=== PATIENT | male | born 1980 | race African-American/Black ===

== ENCOUNTER 2016-06-28 10:01 | Emergency (ER) | payer MEDICAID, OTHER ==
[2016-06-28 11:47] VITALS: BP 140/95
--- NOTE | 2016-06-28 12:52 | ED ---
Skin Complaint - HPI Summary HPI Summary: Patient arrives to ED with CC of right pinky finger swelling, pain and warmth with small scab. He states the pain and swelling have been consistently getting worse and he is thinking it may be infected. He is unable to fully flex and extend the finger d/t swelling. Denies fever. He states the swelling began as a scab that he had picked at and feels it may have become infected. He is otherwise healthy and takes no medications. - History of Current Complaint Chief Complaint: EDExtremityUpper Time Seen by Provider: 06/28/16 10:11 Stated Complaint: RIGHT HAND INJURY Hx Obtained From: Patient Onset/Duration: Started Days Ago Skin Exposure Onset/Duration: Days Ago Timing: Constant Onset Severity: Moderate Current Severity: Moderate Pain Intensity: 5 Pain Scale Used: 0-10 Numeric Skin Location: Hand Aggravating Symptom(s): Nothing Alleviating Symptom(s): Nothing Associated Signs & Symptoms: Drainage, Tenderness, Joint Swelling - Allergy/Home Medications Allergies/Adverse Reactions: Allergies Allergy/AdvReac Type Severity Reaction Status Date / Time No Known Allergies Allergy Verified 06/28/16 10:03 PMH/Surg Hx/FS Hx/Imm Hx Previously Healthy: Yes Infectious Disease History: No Infectious Disease History: Denies: Traveled Outside the [place] in Last 30 Days - Social History Occupation: Employed Full-time Lives: With Family Alcohol Use: Rare Hx Substance Use: No Substance Use Type: Reports: None Hx Tobacco Use: No Smoking Status (MU): Never Smoked Tobacco Review of Systems Constitutional: Negative Cardiovascular: Negative Respiratory: Negative Musculoskeletal: Negative Positive: Other - small 1cm fluctuant mass on palmar side of 5th right finger between MCP and PIP Neurological: Negative Psychological: Normal All Other Systems Reviewed And Are Negative: Yes Physical Exam Triage Information Reviewed: Yes Vital Signs On Initial Exam: Initial Vitals Temp Pulse Resp BP Pulse Ox 97.5 F 81 16 142/92 99 06/28/16 10:03 06/28/16 10:03 06/28/16 10:03 06/28/16 10:03 06/28/16 10:03 Vital Signs Reviewed: Yes Appearance: Positive: Well-Appearing, Well-Nourished Skin: Positive: Warm, Skin Color Reflects Adequate Perfusion, Other - small 1cm fluctuant mass on palmar side of 5th right finger between MCP and PIP Head/Face: Positive: Normal Head/Face Inspection Eyes: Positive: EOMI, APRIL Neck: Positive: Supple, No Lymphadenopathy Respiratory/Lung Sounds: Positive: Clear to Auscultation, Breath Sounds Present Abdomen Description: Positive: Nontender, No Organomegaly Musculoskeletal: Positive: Normal Neurological: Positive: Normal Psychiatric: Positive: Normal AVPU Assessment: Alert Procedures - Incision and Drainage Anesthesia: Digital - digital block Instrument(s): Scalpel Packing: Other - no packing needed Diagnostics - Vital Signs Vital Signs Temp Pulse Resp BP Pulse Ox 06/28/16 11:46 97.4 F 69 16 140/95 06/28/16 10:03 97.5 F 81 16 142/92 99 - Laboratory Lab Statement: Any lab studies that have been ordered have been reviewed, and results considered in the medical decision making process. Course/Dx - Course Course Of Treatment: Patient was draped in sterile fashion. Bedadyne prep used to clean. digital block of right 5th finger. 15" blade used. moderate amount of drainage from area. Small .25cm slit used for incision and drainage. Patient tolerated well. Band-aid applied with gauze surrounding. Antibiotic Keflex given for surrounding cellulitis. 4 percoset's given for pain d/t location of abscess. Will await cultures if abx needs to be changed. - Differential Diagnoses - Skin Complaint Differential Diagnoses: Abscess, Cellulitis, Contact Dermatitis - Diagnoses Provider Diagnoses: abcsess, Cellulitis Discharge - Discharge Plan Condition: Stable Disposition: HOME Prescriptions: Cephalexin CAP* [Keflex CAP*] 500 mg PO QID #28 cap MDD 4 oxyCODONE/Acetamin 10/325(NF) [Percocet 10/325 (NF)] 1 tab PO BID #4 tab MDD 2 Patient Education Materials: Abscess (ED), Incision and Drainage (ED) Forms: *Work Release Referrals: Rashawn Gilmore MD [Primary Care Provider] - Additional Instructions: Take 1 cap 4 times daily for 7 days for cellulitis associated with abscess. Ibuprofen 600mg three times daily as needed for pain Percoset twice daily for 2 days as needed for pain If you develop signs of infection such as fever, drainage from the area, redness or warmth, please come back to ED. Images - Images Hands: 1 - small 1cm fluctuant mass with erythema and warmth surrounding
== END 2016-06-28 11:46 | disposition home or self-care (01) ==
LOC: ED 10:01
DX: L02.511 Cutaneous abscess of right hand (principal); L03.011 Cellulitis of right finger
CPT/HCPCS: 87070; 87205; 87640; 87641; 99282

== ENCOUNTER 2016-08-08 23:13 | Emergency (ER) | payer OTHER ==
[2016-08-09] MEDS ORDERED: Ibuprofen TAB* 600 MG PO ONE (01:43)
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
[2016-08-09 04:54] VITALS: BP 128/91
--- NOTE | 2016-08-09 08:03 | RAD ---
Indication: Dizziness, neck injury. CT of the cervical spine was obtained in the axial plane. Sagittal and coronal reconstructed images were obtained. The skull base demonstrates no evidence of fracture. Mastoid air cells are well aerated. The C1 ring is intact. The vertebral bodies appear normal in height. No compression fracture is noted. Mild disc space narrowing is noted at C4-C5, C5-C6 and C6-C7 with ventral osteophyte formation. IMPRESSION: No fracture of the cervical spine is noted. Mild degenerative disc disease at C4-C5, C5-C6 and C6-C7.
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
== END 2016-08-09 04:53 | disposition home or self-care (01) ==
LOC: ED 23:13
DX: S16.1XXA Strain of muscle, fascia and tendon at neck level, initial encounter (principal); V49.40XA Driver injured in collision with unspecified motor vehicles in traffic accident, initial encounter; Y92.410 Unspecified street and highway as the place of occurrence of the external cause; G40.909 Epilepsy, unspecified, not intractable, without status epilepticus
CPT/HCPCS: 70450; 72125; 99283; A9270-GY

== ENCOUNTER 2016-08-16 23:57 | Emergency (ER) | payer OTHER ==
--- NOTE | 2016-08-17 01:18 | ED ---
Yumiko Barber Matthew, scribed for Yoan oGnzalez MD on 08/17/16 at 0041 . Lower Extremity - HPI Summary HPI Summary: A 36 y/o male presents to the ED with right ankle pain since minutes ago. The pain is rated 5/10 in severity. The patient states that he fell in the bathroom and twisted his ankle. He has no other c/o at this time. - History of Current Complaint Chief Complaint: EDExtremityLower Stated Complaint: FALL, LEG PAIN Time Seen by Provider: 08/17/16 00:14 Hx Obtained From: Patient Mechanism Of Injury: Fall From A Standing Position Onset of Pain: Immediate Onset/Duration: Still Present Severity Initially: Moderate Severity Currently: Moderate Pain Intensity: 5 Pain Scale Used: 0-10 Numeric Timing: Constant Location: Is Discrete @ - right ankle Associated Signs And Symptoms: Positive: Negative Aggravating Factor(s): Movement - Allergies/Home Medications Allergies/Adverse Reactions: Allergies Allergy/AdvReac Type Severity Reaction Status Date / Time No Known Allergies Allergy Verified 08/17/16 00:21 PMH/Surg Hx/FS Hx/Imm Hx Endocrine/Hematology History: Denies: Hx Diabetes Neurological History: Reports: Hx Seizures Infectious Disease History: Denies: Traveled Outside the [place] in Last 30 Days - Family History Known Family History: Negative: Diabetes - Social History Alcohol Use: Rare Hx Substance Use: No Substance Use Type: Reports: None Hx Tobacco Use: No Smoking Status (MU): Never Smoked Tobacco Review of Systems Constitutional: Negative Eyes: Negative ENT: Negative Cardiovascular: Negative Respiratory: Negative Gastrointestinal: Negative Genitourinary: Negative Positive: Arthralgia - Right ankle pain Skin: Negative Neurological: Negative Psychological: Normal All Other Systems Reviewed And Are Negative: Yes Physical Exam Triage Information Reviewed: Yes Vital Signs On Initial Exam: Initial Vitals Temp Pulse Resp BP Pulse Ox 98 F 72 16 142/94 100 08/17/16 00:30 08/17/16 00:30 08/17/16 00:30 08/17/16 00:30 08/17/16 00:30 Vital Signs Reviewed: Yes Appearance: Positive: Well-Appearing, No Pain Distress Skin: Positive: Warm Head/Face: Positive: Normal Head/Face Inspection Eyes: Positive: APRIL ENT: Positive: Hearing grossly normal Neck: Positive: Supple Respiratory/Lung Sounds: Positive: Clear to Auscultation, Breath Sounds Present Cardiovascular: Positive: RRR Abdomen Description: Positive: Nontender, Soft Musculoskeletal: Positive: Other - rt foot mild tenderness layt aspect of foot, no dseformity Neurological: Positive: Alert, Oriented to Person Place, Time Diagnostics - Vital Signs Vital Signs Temp Pulse Resp BP Pulse Ox 08/17/16 00:30 98 F 72 16 142/94 100 - Laboratory Lab Statement: Any lab studies that have been ordered have been reviewed, and results considered in the medical decision making process. - Radiology Foot XR Xray Interpretation: No Acute Changes Radiology Interpretation Completed By: ED Physician Ankle XR Xray Interpretation: No Acute Changes Radiology Interpretation Completed By: ED Physician Lower Extremity Course/Dx - Course Assessment/Plan: A 36 y/o male presents to the ED with right ankle pain since minutes ago. The pain is rated 5/10 in severity. The patient states that he fell in the bathroom and twisted his ankle. He has no other c/o at this time. The XRs were negative for a fracture. The patient will be discharged home with ibuprofen and follow-up with his PCP. - Diagnoses Provider Diagnoses: Contusion of foot, right Discharge - Discharge Plan Condition: Stable Disposition: HOME Prescriptions: Ibuprofen TAB* [Motrin TAB* 600 MG] 600 mg PO Q6H #30 tab Patient Education Materials: Ibuprofen (By mouth), Foot Contusion (ED) Referrals: Rashawn Gilmore MD [Primary Care Provider] - 3 Days Additional Instructions: Please follow-up with your primary care physician in 3 days. The documentation as recorded by the Yumiko schwartz Matthew accurately reflects the service I personally performed and the decisions made by , Yoan Gonzalez MD.
[2016-08-17] MEDS ORDERED: Ibuprofen TAB* 600 MG PO ONE (01:23)
[2016-08-17] MEDS ORDERED: Ibuprofen TAB* 600 MG ONE (01:25)
[2016-08-17 01:37] VITALS: BP 133/88
--- NOTE | 2016-08-17 07:36 | RAD ---
INDICATION: Right ankle injury. TECHNIQUE: 2 views of the right ankle were obtained. FINDINGS: There is soft tissue swelling present along the anterior aspect of the ankle. The bones are normal alignment. No acute fracture is seen. Joint spaces appear maintained. IMPRESSION: SOFT TISSUE SWELLING, NO FRACTURE IS SEEN.
--- NOTE | 2016-08-17 07:41 | RAD ---
INDICATION: Right foot injury. TECHNIQUE: 3 views of the right foot were obtained. FINDINGS: There is soft tissue swelling present along the dorsal aspect of the foot. The bones are normal alignment. There is a small 4 mm calcific density present adjacent to the dorsal navicular bone consistent with a small avulsion fracture fragment age indeterminate. No other fractures are seen. Joint spaces appear maintained. IMPRESSION: SMALL AVULSION FRACTURE FRAGMENT ARISING FROM THE DORSAL NAVICULAR BONE, AGE INDETERMINATE.
== END 2016-08-17 01:37 | disposition home or self-care (01) ==
LOC: ED 23:57
DX: S90.31XA Contusion of right foot, initial encounter (principal); S92.251A Displaced fracture of navicular [scaphoid] of right foot, initial encounter for closed fracture; W19.XXXA Unspecified fall, initial encounter; Y92.002 Bathroom of unspecified non-institutional (private) residence as the place of occurrence of the external cause
CPT/HCPCS: 99282; A9270-GY

== ENCOUNTER 2018-10-14 14:20 | Emergency (ER) | payer SELFPAY ==
--- NOTE | 2018-10-14 16:05 | ED ---
Upper Extremity Pain - HPI Summary HPI Summary: Lt ring finger, palmar surface with red swelling x5 days. Better since soaking in hot water - no drainage. Had blisters over the IP joints on this hand from working with wet mop handles (pseudomonas infection?). Denies streaking, numbness, tingling, weakness. Some pain w/ end flexion - TTP. No pain w/ passive ROM. Has not taken any medication for pain/swelling and denies use of anbx. nO h/o MRSA/MSSA - History of Current Complaint Chief Complaint: EDRashSkinAbscess Stated Complaint: BLISTER ON FINGER Time Seen by Provider: 10/14/18 14:45 Hx Obtained From: Patient - Allergies/Home Medications Allergies/Adverse Reactions: Allergies Allergy/AdvReac Type Severity Reaction Status Date / Time No Known Allergies Allergy Verified 10/14/18 14:31 PMH/Surg Hx/FS Hx/Imm Hx Previously Healthy: Yes Endocrine/Hematology History: Denies: Hx Diabetes, Autoimmune Disease Musculoskeletal History: Denies: Hx Arthritis, Hx Rheumatoid Arthritis, Hx Bursitis, Hx Gout, Hx Orthopedic Injury, Hx Scoliosis, Hx Tendonitis, Hx of Fracture(s) Neurological History: Reports: Hx Seizures Denies: Hx Headaches, Other Neuro Impairments/Disorders Infectious Disease History: No Infectious Disease History: Denies: Hx of Known/Suspected MRSA, Traveled Outside the [place] in Last 30 Days - Family History Known Family History: Negative: Diabetes - Social History 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 @ [employer] Lives: With Family - children Alcohol Use: Rare Hx Substance Use: No Substance Use Type: Reports: None Hx Tobacco Use: No Smoking Status (MU): Never Smoked Tobacco Review of Systems Constitutional: Negative Negative: Fever, Chills, Fatigue Cardiovascular: Negative Respiratory: Negative Gastrointestinal: Negative Negative: Vomiting, Nausea Positive: no symptoms reported Positive: Edema Skin: Other - redness of finger Neurological: Negative Psychological: Normal All Other Systems Reviewed And Are Negative: Yes Physical Exam Triage Information Reviewed: Yes Vital Signs On Initial Exam: Initial Vitals Temp Pulse Resp BP Pulse Ox 98.0 F 82 14 127/90 97 10/14/18 14:28 10/14/18 14:28 10/14/18 14:28 10/14/18 14:28 10/14/18 14:28 Vital Signs Reviewed: Yes Appearance: Positive: Well-Appearing, No Pain Distress, Well-Nourished Skin: Positive: Warm, Skin Color Reflects Adequate Perfusion, Dry - diffuse callouses over IP joints of palmar surface of B/L hands; well circumscribed area of erythematous induration involving flesh of palmar surface of Lt ring finger (proximal) - no signs of acute trauma (scabbing) and no streaking, drainage, pusutles - mild TTP Head/Face: Positive: Normal Head/Face Inspection ENT: Positive: Hearing grossly normal Respiratory/Lung Sounds: Positive: Breath Sounds Present Cardiovascular: Positive: Pulses are Symmetrical in both Upper and Lower Extremities Musculoskeletal: Positive: Strength/ROM Intact, Other - no pain w/ passive ROM of tendons involving the area Neurological: Positive: Normal, Sensory/Motor Intact, Alert, Oriented to Person Place, Time Psychiatric: Positive: Normal Diagnostics - Vital Signs Vital Signs Temp Pulse Resp BP Pulse Ox 10/14/18 14:28 98.0 F 82 14 127/90 97 - Laboratory Lab Statement: Any lab studies that have been ordered have been reviewed, and results considered in the medical decision making process. Course/Dx - Course Course Of Treatment: possible pseudomonas infection of tissue from friction injury involving wet wooden mop handle - will trial anbx and advise close f/u - pt aware of danger s/sx of when to return to ED - otherwise will f/u w/ hand specialist. - Diagnoses Provider Diagnoses: Superficial injury of left ring finger with infection Discharge - Sign-Out/Discharge Documenting (check all that apply): Patient Departure Patient Received Moderate/Deep Sedation with Procedure: No - Discharge Plan Condition: Stable Disposition: HOME Prescriptions: Ciprofloxacin TAB* [Cipro 500 MG TAB*] 500 mg PO BID #20 tab Patient Education Materials: Abscess (ED) Forms: *Work Release Referrals: Paul Kruger MD [Medical Doctor] - Additional Instructions: Rest - avoid friction/pressure to area Move with gentle stretches to prevent stiffness Soak in warm epsom salt water 2-3 x day - if any area of the finger opens and drains, continue to soak and express contents with gentle pressure then wash and cover to catch any remaining drainage For pain and swelling, take ibuprofen 600mg every 6 hours with food Complete antibiotics as directed If same or worse next week, call hand specialist for evaluation (contact information provided here) *if you develop streaking, stiffness, numbness, tingling, weakness, fever, chills, return to the ED - Billing Disposition and Condition Condition: STABLE Disposition: Home
[2018-10-14 16:35] VITALS: BP 128/88
== END 2018-10-14 16:34 | disposition home or self-care (01) ==
LOC: ED 14:20
DX: S60.945A Unspecified superficial injury of left ring finger, initial encounter (principal); X50.3XXA Overexertion from repetitive movements, initial encounter; Y99.0 Civilian activity done for income or pay
CPT/HCPCS: 99282

== ENCOUNTER 2018-10-27 15:23 | Emergency (ER) | payer OTHER ==
--- NOTE | 2018-10-27 18:17 | ED ---
Skin Complaint - HPI Summary HPI Summary: This pt is a 38 y/o male presenting to [facility] c/o swelling and redness on right fourth digit. Pt is right handed. Pt reports he was working with wet mop handles and got a blister on right fourth digit on 10/07/18. Pt was seen in the ED on 10/14/18 where he was given ibuprofen and was told to soak his finger in Epsom salt. He notes after these treatments his swelling began to decrease. He notes he was out of work for 7 days and on the 8th day post incident he went back to work and his finger began swelling up again. Now he notes he has redness , swelling, and pain on right fourth finger. Denies any drainage from finger. pain with flexion. No fever chills. not immunocompromised. tdap utd Denies any PMHx. He does not take any medications on a daily basis. NKDA. Pt's medications reviewed this visit. - History of Current Complaint Chief Complaint: EDExtremityUpper Time Seen by Provider: 10/27/18 17:17 Stated Complaint: INFECTION ON HIS HAND PER PATIENT Hx Obtained From: Patient Onset/Duration: Started Days Ago, Still Present Skin Exposure Onset/Duration: Days Ago Timing: Lasting Days Current Severity: Severe Pain Intensity: 10 Pain Scale Used: 0-10 Numeric Skin Location: Other: - Right fourth digit Character: Swelling, Pain, Redness Aggravating Symptom(s): Nothing Alleviating Symptom(s): Nothing Associated Signs & Symptoms: Negative Related History: Other: - s/p right fourth digit blister on 10/07/18. - Allergy/Home Medications Allergies/Adverse Reactions: Allergies Allergy/AdvReac Type Severity Reaction Status Date / Time No Known Allergies Allergy Verified 10/27/18 15:31 Home Medications: Home Medications Acetaminophen TAB* [Tylenol TAB*] 650 mg PO Q6H PRN 10/27/18 [History Confirmed 10/27/18] Ibuprofen TAB* [Advil TAB*] 600 mg PO Q6H PRN 10/27/18 [History Confirmed ] PMH/Surg Hx/FS Hx/Imm Hx Previously Healthy: Yes Endocrine/Hematology History: Denies: Hx Diabetes Musculoskeletal History: Denies: Hx Arthritis, Hx Rheumatoid Arthritis, Hx Bursitis, Hx Gout, Hx Orthopedic Injury, Hx Scoliosis, Hx Tendonitis Neurological History: Reports: Hx Seizures Denies: Hx Headaches, Other Neuro Impairments/Disorders Infectious Disease History: No Infectious Disease History: Denies: Hx of Known/Suspected MRSA, Traveled Outside the [place] in Last 30 Days - Family History Known Family History: Positive: Non-Contributory Negative: Diabetes - Social History Occupation: Employed Full-time Lives: With Family Alcohol Use: Rare Hx Substance Use: No Substance Use Type: Reports: None Hx Tobacco Use: No Smoking Status (MU): Light Every Day Tobacco Smoker Review of Systems Negative: Fever Musculoskeletal: Other - POSITIVE: right 4th finger pain Positive: Edema - right 4th finger All Other Systems Reviewed And Are Negative: Yes Physical Exam - Summary Physical Exam Summary: Vital Signs Reviewed: Yes A+Ox3, no distress Eyes: Conjunctiva Clear, ENT: Hearing grossly normal Neck: Positive: Supple Respiratory: Positive: No respiratory distress, No accessory muscle use Cardiovascular: CBT <2 sec 2= radial Musculoskeletal Exam: Pt with edema palmar aspect right ring finger + erythema, warmth edema primarily at DIP joint -extends to MCP {t wit limited extension of IP joint improved extion of MCP with discomfort extending to central palm mild warmth. no drainage + TTP hold in slight flexion Neurological: Positive: Alert, + sensation throughout tip of finger Psychological: Positive: Normal Response To examiner Skin: Positive: no rash, no ecchymosis Triage Information Reviewed: Yes Vital Signs On Initial Exam: Initial Vitals Temp Pulse Resp BP Pulse Ox 99.2 F 91 18 128/89 97 10/27/18 15:29 10/27/18 15:29 10/27/18 15:29 10/27/18 15:29 10/27/18 15:29 Diagnostics - Vital Signs Vital Signs Temp Pulse Resp BP Pulse Ox 10/27/18 17:30 76 119/73 97 10/27/18 17:28 98.6 F 77 18 119/73 97 10/27/18 15:29 99.2 F 91 18 128/89 97 - Laboratory Result Diagrams: 10/27/18 18:51 10/27/18 18:51 Lab Statement: Any lab studies that have been ordered have been reviewed, and results considered in the medical decision making process. Re-Evaluation - Re-Evaluation First Eval Re-Evaluation Time: 18:25 Comment: Dr. Maher, orthopedist, was paged. Nurse calls back and reports he is still in surgery. Will call back as soon as he is done. Course/Dx - Course Course Of Treatment: Pt with progresive pain, swelling and erythema of palmar aspect of right ring finger IP joint area -edema and erythema extending to MCP pain with full extensio IP jpint. no fevers, not immuocompromised. VSS. concern for early tenosynovitis. will check labs, imaging, rocephin. request ortho input. pt in agreement with plan. will sign out pt to Kota mandel pending ortho consult - Diagnoses Provider Diagnoses: Finger infection Discharge - Sign-Out/Discharge Documenting (check all that apply): Sign-Out Patient Signing out patient TO: Aaron Mandel - pending labs, XR, and consult Patient Received Moderate/Deep Sedation with Procedure: No - Discharge Plan Condition: Stable Disposition: HOME Prescriptions: Cephalexin CAP* [Keflex CAP*] 500 mg PO QID #40 cap Patient Education Materials: Wound Infection (DC) Forms: *Work Release Referrals: Rashawn Gilmore MD [Primary Care Provider] - Herve Maher MD [Medical Doctor] - 2 Days Additional Instructions: If you develop a fever, worsening pain, shortness of breath, chest pain, new or worsening symptoms - please call your PCP or go to the ED immediately. Please start the antibiotic as directed Please call Orthopedics on Tuesday morning and someone in their office will see you that day for a recheck of your finger - Billing Disposition and Condition Condition: STABLE Disposition: Home - Attestation Statements Document Initiated by Niya: Yes Documenting Scribe: Keri Multani Provider For Whom Niya is Documenting (Include Credential): Kristen Mccormack MD Scribe Attestation: Keri Barber, scribed for Kristen Mccormack MD on 10/28/18 at 0540. Scribe Documentation Reviewed: Yes Provider Attestation: The documentation as recorded by the Keri schwartz accurately reflects the service I personally performed and the decisions made by , Kristen Mccormack MD Status of Scribe Document: Viewed
[2018-10-27] MEDS ORDERED: NS 0.9% 1000 ML** 1,000 ML IV ONE (18:21)
[2018-10-27] MEDS ORDERED: cefTRIAXone(*) 1 GM in NS 0.9% 50 ML* 50 ML IVPB ONE (18:23)
--- NOTE | 2018-10-27 18:43 | ED ---
Progress - Progress Note Progress Note: This pt is a 38 y/o male [facility] c/o swelling and redness on right fourth digit. Pt is right handed. Pt reports he was working with wet mop handles and got a blister on right fourth digit on 10/07/18. Pt was seen in the ED on 10/14/18 where he was given ibuprofen and was told to soak his finger in Epsom salt. He notes after these treatments his swelling began to decrease. He notes he was out of work for 7 days and on the 8th day post incident he went back to work and his finger began swelling up again. Now he notes he has redness , swelling, and pain on right fourth finger. Denies any drainage from finger. Denies any PMHx. He does not take any medications on a daily basis. NKDA. GENERAL: NAD. WDWN. No pain distress. SKIN: RIGHT 4th digit: Proximal phalanx with moderate edema and TTP. Mild TTP along flexor aspect of 4th MC. CHEST: No accessory muscle use. Breathing comfortably and in no distress. CV: Pulses intact radial and ulnar. Cap refill <2seconds MSK: RIGHT 4th digit: Unable to flex due to pain and swelling at proximal phalanx. TTP. RIGHT WRIST: FROM without pain NEURO: Alert. Sensations intact hand and all fingers. PSYCH: Age appropriate behavior. - Results/Orders Results/Orders: Laboratory Tests 10/27/18 10/27/18 18:51 18:51 WBC 9.1 RBC 4.37 Hgb 13.3 L Hct 40 L MCV 91 MCH 31 MCHC 34 RDW 14 Plt Count 232 MPV 7.9 Neut % (Auto) 59.4 Lymph % (Auto) 31.0 Story % (Auto) 6.8 Eos % (Auto) 2.2 Baso % (Auto) 0.6 Absolute Neuts (auto) 5.4 Absolute Lymphs (auto) 2.8 Absolute Monos (auto) 0.6 Absolute Eos (auto) 0.2 Absolute Basos (auto) 0.1 Absolute Nucleated RBC 0.0 Nucleated RBC % 0.0 Sodium 137 Potassium 4.5 Chloride 107 Carbon Dioxide 25 Anion Gap 5 BUN 14 Creatinine 1.06 Est GFR ( Amer) 94.1 Est GFR (Non-Af Amer) 77.8 BUN/Creatinine Ratio 13.2 Glucose 146 H Calcium 9.2 C-Reactive Protein 3.63 Re-Evaluation - Re-Evaluation First Eval Re-Evaluation Time: 18:25 Comment: Dr. Maher, orthopedist, was paged. Nurse calls back and reports he is still in surgery. Will call back as soon as he is done. Course/Dx - Course Course Of Treatment: Given his symptoms and exam there is a suspicion for flexor tenosynovitis. Ortho was consulted. Cheryl examined pt and spoke with Dr. Maher. recommends stopping anbx and starting keflex QID as he is afebrile and labwork is WNL. F/u Tuesday in the office. Return to ED if worse. Discussed this with pt and he is agreeable with the plan. He agrees to follow up Tuesday. Strict return precautions given - if he develops a fever, worsening pain/swelling, or spreading redness, drainage - return to ED immediately. - Diagnoses Provider Diagnoses: Finger infection - Provider Notifications Discussed Care Of Patient With: Cheryl Luna examined pt and spoke with Dr. Maher. recommends stopping anbx and starting keflex QID. F/u Tuesday. Return to ED if worse Time Discussed With Above Provider: 20:15 Discharge - Sign-Out/Discharge Documenting (check all that apply): Patient Departure, Receiving Sign-Out Receiving patient FROM: Kristen Mccormack Patient Received Moderate/Deep Sedation with Procedure: No - Discharge Plan Condition: Stable Disposition: HOME Prescriptions: Cephalexin CAP* [Keflex CAP*] 500 mg PO QID #40 cap Patient Education Materials: Wound Infection (DC) Forms: *Work Release Referrals: Rashawn Gilmore MD [Primary Care Provider] - Herve Maher MD [Medical Doctor] - 2 Days Additional Instructions: If you develop a fever, worsening pain, shortness of breath, chest pain, new or worsening symptoms - please call your PCP or go to the ED immediately. Please start the antibiotic as directed Please call Orthopedics on Tuesday morning and someone in their office will see you that day for a recheck of your finger - Billing Disposition and Condition Condition: STABLE Disposition: Home
[2018-10-27 19:01] LABS: ABS Basophils 0.1 10^3/ul (0-0.2); ABS Eosinophils 0.2 10^3/ul (0-0.6); ABS Lymphocytes 2.8 10^3/ul (1.0-4.8); ABS Monocytes 0.6 10^3/ul (0-0.8); ABS Neutrophils 5.4 10^3/ul (1.5-7.7); Eosinophil % 2.2 %; Hematocrit 40 % (42-52); Hemoglobin 13.3 g/dL (14.0-18.0); Mean Corpuscular HGB Conc 34 g/dL (31-36); Mean Corpuscular Hemoglobin 31 pg (27-31); Mean Corpuscular Volume 91 fL (80-94); Mean Platelet Volume 7.9 fL (7.4-10.4); Platelet Count 232 10^3/uL (150-450); Red Blood Count 4.37 10^6 /uL (4.18-5.48); Red Cell Distribution Width 14 % (10-15); White Blood Count 9.1 10^3/uL (3.5-10.8)
[2018-10-27 19:17] LABS: BUN/Creatinine Ratio 13.2 (8-20); C Reactive Protein 3.63 mg/L (<8.01); Calcium 9.2 mg/dL (8.6-10.3); EGFR African American 94.1 (>60); EGFR Non-African American 77.8 (>60)
[2018-10-27 19:21] LABS: Potassium 4.5 mmol/L (3.5-5.0)
[2018-10-27 21:55] VITALS: BP 150/99
== END 2018-10-27 21:25 | disposition home or self-care (01) ==
LOC: ED 15:23
DX: L08.9 Local infection of the skin and subcutaneous tissue, unspecified (principal); F17.210 Nicotine dependence, cigarettes, uncomplicated
CPT/HCPCS: 36415; 73140; 80048; 85025; 86140; 96361; 96365; 99283; J0696

== ENCOUNTER → 2018-10-30 13:08 | Emergency (ER) | payer OTHER ==
[~2018-10-30 13:08] MED LIST: Gadoteridol* (CONTRAST) 279.3 MG/ML 10 ML IV ONE
[2018-10-30 13:19] VITALS: BP 145/104
--- OUTSIDE RECORDS SUMMARY | 2018-10-30 13:21 | XMS REPORT | Continuity of Care Document ---
:1980 External Reference #:[id number] Author Name Jordana Meeks Care Team Providers Name Role Phone Rashawn Gilmore MD Primary Care Physician Unavailable Payers Date Identification Numbers Payment Provider Subscriber Onset: 2018 Policy Number: [id number] # [employer] Name: [phone] PayID: [id number] [place] [address] Expires: 2015 Policy Number: [id number] [employer] Long Mccormack PayID: [id number] [address] [address] [place] [address] Expires: 2016 Policy Number: [id number] Medicaid Long [employer] Group Name: 1 1 [address] PayID: [id number] [place] [address] Effective: 2016 Policy Number: [id number] [employer] Long [employer]ack Expires: 2017 Group Name: [id number] [address] [address] PayID: [id number] [place] [address] Problems Active Problems Provider Date Epilepsy Kala Shirley M.D. Onset: 12/02/2015 Cellulitis of right finger Ally Cespedes M.D. Onset: 10/30/2018 Family History Date Family Member(s) Observation Comments General Diabetes General Hypertension Social History Type Date Description Comments Sex Unknown Lives With Spouse Occupation Currently Working ETOH Use Rarely consumes alcohol Tobacco Use Start: Unknown Light tobacco smoker (10 or fewer cigarettes/day) Smoking Status Reviewed: 10/30/18 Light tobacco smoker (10 or fewer cigarettes/day) Allergies, Adverse Reactions, Alerts Description No Known Drug Allergies Medications Description No Active Medications Vital Signs Date Vital Result Comment 10/30/2018 11:46am Height 72 inches 6'0" Weight 168.00 lb BP Systolic 128 mmHg BP Diastolic 74 mmHg Respiratory Rate 16 /min Body Temperature 95.8 F Pain Level 8 BMI (Body Mass Index) 22.8 kg/m2 02/10/2016 11:29am Height 72 inches 6'0" Weight 168.00 lb Heart Rate 74 /min BP Systolic Sitting 132 mmHg BP Diastolic Sitting 80 mmHg Respiratory Rate 16 /min BMI (Body Mass Index) 22.8 kg/m2 12/02/2015 10:44am Height 72 inches 6'0" Weight 168.00 lb Heart Rate 72 /min BP Systolic Sitting 110 mmHg BP Diastolic Sitting 70 mmHg Respiratory Rate 17 /min BMI (Body Mass Index) 22.8 kg/m2 Procedures Date Code Description Status 12/22/2015 12997 EEG Recording Awake & Asleep Completed Encounters Type Date Location Provider Dx Diagnosis Office Visit 02/10/2016 [place] Sidd[facility]artha Palacio G40.909 Epilepsy, unsp, 11:30a [facility] Shirley M.D. not intractable, without status epilepticus Office Visit 12/02/2015 [place] Siddhartha Palacio G40.909 Epilepsy, unsp, 11:00a [facility] M.D. not intractable, without status epilepticus Plan of Treatment 10/30/2018 - Ally Cespedes M.D.M79.644 Pain in right finger(s)Follow up:Follow up: go to [facility] EDL03.011 Cellulitis of right finger
== END | disposition left against medical advice (07) ==
LOC: ED 13:08
DX: Z53.21 Procedure and treatment not carried out due to patient leaving prior to being seen by health care provider (principal)
CPT/HCPCS: 99282

== ENCOUNTER 2018-10-30 15:45 | Emergency (ER) | payer OTHER ==
--- OUTSIDE RECORDS SUMMARY | 2018-10-30 15:59 | XMS REPORT | Continuity of Care Document ---
:1980 External Reference #:[id number] Author Name Jordana Meeks Care Team Providers Name Role Phone Rashawn Gilmore MD Primary Care Physician Unavailable Payers Date Identification Numbers Payment Provider Subscriber Onset: 2018 Policy Number: [id number] # [employer] Name: [phone] PayID: [id number] [place] [address] Expires: 2015 Policy Number: [id number] [employer] PayID: [id number] [address] [address] [place] [address] Expires: 2016 Policy Number: [id number] Medicaid Long [employer] Group Name: 1 1 [address] PayID: [id number] [place] [address] Effective: 2016 Policy Number: [id number] [employer] Expires: 2017 Group Name: [id number] [address] [address] PayID: [id number] [place] [address] Problems Active Problems Provider Date Epilepsy Kala [...] Vital Signs Date Vital Result Comment 10/30/2018 2:39pm Height 72 inches 6'0" Weight 168.00 lb Heart Rate 66 /min BP Systolic 120 mmHg BP Diastolic 70 mmHg Respiratory Rate 16 /min Body Temperature 95.4 F Pain Level 9 BMI (Body Mass Index) 22.8 kg/m2 10/30/2018 11:46am Height 72 inches 6'0" Weight [...] kg/m2 Procedures Date Code Description Status 12/22/2015 44651 EEG Recording Awake & Asleep Completed Encounters Type Date Location Provider Dx Diagnosis Office Visit 02/10/2016 [place] Palacio G40.909 Epilepsy, unsp, 11:30a [facility] M.D. not intractable, without status epilepticus Office Visit 12/02/2015 [place] Siddhartha Palacio G40.909 Epilepsy, unsp, 11:00a [facility] M.D. not intractable, without status epilepticus Plan of Treatment 10/30/2018 - David Mane MDL02.511 Cutaneous abscess of right handFollow up:Follow up: Patient will go to ED now
--- NOTE | 2018-10-30 16:20 | ED ---
Upper Extremity Pain - HPI Summary HPI Summary: Patient is a 38-year-old male who presents emergency department for reevaluation of infection to fourth digit of right hand. Patient's fourth ER visit for this complaint. Patient states that a month ago he developed a wound on his fourth digit that progressed into redness and swelling. Patient has been on numerous antibiotics without improvement. Patient states he was seen in the orthopedic clinic today by Dr. Mane recommend patient come to the ER for potential MRI, IV antibiotics and incision and drainage by Dr. Mane. Patient denies fever, chills, nausea, vomiting. He has no past medical history. Movement makes symptoms worse. Nothing makes symptoms better. - History of Current Complaint Chief Complaint: EDExtremityUpper Stated Complaint: HAND INJURY PER PT Time Seen by Provider: 10/30/18 16:18 Hx Obtained From: Patient - Allergies/Home Medications Allergies/Adverse Reactions: Allergies Allergy/AdvReac Type Severity Reaction Status Date / Time No Known Allergies Allergy Verified 10/30/18 13:18 PMH/Surg Hx/FS Hx/Imm Hx Previously Healthy: Yes Endocrine/Hematology History: Denies: Hx Diabetes Musculoskeletal History: Denies: Hx Arthritis, Hx Rheumatoid Arthritis, Hx Bursitis, Hx Gout, Hx Orthopedic Injury, Hx Scoliosis, Hx Tendonitis Neurological History: Reports: Hx Seizures Denies: Hx Headaches, Other Neuro Impairments/Disorders Infectious Disease History: No Infectious Disease History: Denies: Hx of Known/Suspected MRSA, Traveled Outside the [place] in Last 30 Days - Family History Known Family History: Positive: Non-Contributory Negative: Diabetes - Social History Occupation: Employed Full-time Lives: With Family Alcohol Use: Rare Hx Substance Use: No Substance Use Type: Reports: None Hx Tobacco Use: No Smoking Status (MU): Light Every Day Tobacco Smoker Review of Systems Constitutional: Negative Negative: Fever, Chills Gastrointestinal: Negative Positive: Other - pain, redness, swelling to right 3rd digit of hand All Other Systems Reviewed And Are Negative: Yes Physical Exam Triage Information Reviewed: Yes Vital Signs On Initial Exam: Initial Vitals Temp Pulse Resp BP Pulse Ox 97.7 F 63 18 153/103 99 10/30/18 15:47 10/30/18 15:47 10/30/18 15:47 10/30/18 15:47 10/30/18 15:47 Vital Signs Reviewed: Yes Appearance: Positive: Well-Appearing - Pt. sitting up in bed in NAD. Family present. Skin: Positive: Warm, Dry Head/Face: Positive: Normal Head/Face Inspection Eyes: Positive: Normal, EOMI Neck: Positive: Supple Musculoskeletal: Positive: Other - Marked edema and erythema to right 4th digit of hand. No drainage. Limited ROM secondary to pain and swelling. Neurological: Positive: Normal, CN Intact II-III Psychiatric: Positive: Affect/Mood Appropriate Diagnostics - Vital Signs Vital Signs Temp Pulse Resp BP Pulse Ox 10/30/18 15:47 97.7 F 63 18 153/103 99 - Laboratory Result Diagrams: 10/30/18 16:52 10/30/18 16:52 Lab Statement: Any lab studies that have been ordered have been reviewed, and results considered in the medical decision making process. Course/Dx - Course Assessment/Plan: Pt. presenting for ongoing finger infection. Afebrile. Case discussed with Dr. Mane who would like MRI with contrast if possible. MRI available at [address] Mane would like to wait to obtain a wound culture before given IV antibiotics. Dr. Mane would like called after MRI is completely and then he will see pt. in the ED. Pt. will be signed out to MICHELLE Sharpe for disposition. - Diagnoses Differential Diagnosis/HQI/PQRI: Positive: Osteomyelitis, Septic Arthritis Provider Diagnoses: Finger infection Discharge - Sign-Out/Discharge Documenting (check all that apply): Sign-Out Patient Signing out patient TO: Dior Rivera - Discharge Plan Condition: Good Referrals: Rashawn Gilmore MD [Primary Care Provider] - - Billing Disposition and Condition Condition: GOOD
[2018-10-30] MEDS ORDERED: Lidocaine 1% MPF ** 5 ML VIAL INJ ONE (16:38)
[2018-10-30 17:05] LABS: ABS Eosinophils 0.2 10^3/ul (0-0.6); ABS Lymphocytes 2.9 10^3/ul (1.0-4.8); ABS Monocytes 0.6 10^3/ul (0-0.8); ABS Neutrophils 3.4 10^3/ul (1.5-7.7); Eosinophil % 3.1 %; Hematocrit 40 % (42-52); Hemoglobin 13.8 g/dL (14.0-18.0); Lymphocyte % 40.9 %; Mean Corpuscular HGB Conc 35 g/dL (31-36); Mean Corpuscular Hemoglobin 31 pg (27-31); Mean Corpuscular Volume 90 fL (80-94); Nucleated Red Blood Cells % 0.1; Platelet Count 241 10^3/uL (150-450); Red Blood Count 4.42 10^6 /uL (4.18-5.48); Red Cell Distribution Width 14 % (10-15); White Blood Count 7.1 10^3/uL (3.5-10.8)
[2018-10-30 17:30] LABS: Albumin 4.2 g/dL (3.2-5.2); Albumin/Globulin Ratio 1.4 (1-3); BUN/Creatinine Ratio 8.5 (8-20); C Reactive Protein 4.43 mg/L (<8.01); Calcium 9.3 mg/dL (8.6-10.3); EGFR African American 108.1 (>60); EGFR Non-African American 89.3 (>60); Potassium 3.9 mmol/L (3.5-5.0); Total Bilirubin 0.4 mg/dL (0.2-1.0); Total Protein 7.2 g/dL (6.4-8.9)
--- NOTE | 2018-10-30 18:09 | ED ---
Progress - Progress Note Progress Note: patient signed out by campbell pending MRI and ortho consult MRI shows: IMPRESSION: Predominantly soft tissue swelling at the fourth digit in its volar aspect from the mid midportion of the proximal phalanx to the distal portion of the middle phalanx. There may be areas of small loculated fluid collections are noted. Diffuse edema is otherwise noted. No evidence of osteomyelitis is noted. ortho saw patient and I&D the area Course/Dx - Course Course Of Treatment: 38-year-old male presents with infection of right ring finger for past week. was seen by ortho and sent here. MRI was done and shows no osteo. area was I&D by dr Jacobsen. per dr jacobsen patient should be placed on keflex and doxycyline and follow up with ortho. - Diagnoses Provider Diagnoses: Finger infection Discharge - Sign-Out/Discharge Documenting (check all that apply): Patient Departure, Receiving Sign-Out Receiving patient FROM: Campbell Callaway Patient Received Moderate/Deep Sedation with Procedure: No - Discharge Plan Condition: Good Disposition: HOME Prescriptions: Cephalexin CAP* [Keflex CAP*] 500 mg PO TID #21 cap DOXYcycline CAP(*) [DOXYcycline 100MG CAP(*)] 100 mg PO BID #14 cap Patient Education Materials: Abscess (ED) Forms: *Work Release Referrals: Rashawn Gilmore MD [Primary Care Provider] - David Jacobsen MD [Medical Doctor] - Additional Instructions: change dressing once a day follow up with ortho on Take keflex three times a day for 7 days Take doxycycline twice a day for 7 days Return to ED if develop any new or worsening symptoms - Billing Disposition and Condition Condition: GOOD Disposition: Home
[2018-10-30] MEDS ORDERED: Lidocaine 1% MPF ** 5 ML VIAL ONE (18:44)
[2018-10-30 19:41] VITALS: BP 145/89
--- NOTE | 2018-10-31 01:59 | CONS ---
CONSULTATION REPORT: DATE OF CONSULT: 10/30/18 - EMERGENCY DEPT REASON FOR CONSULTATION: Right ring finger infection. 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 In mid August, the patient developed a blister on multiple fingers, volar surface. This included about the volar aspect of the ring finger near the PIP joint. The patient noted some more swelling about that blister on the ring finger about 09/23/18. The patient reports he went to the emergency room on 10/04/18 and was given oral antibiotics. Then, he returned on 10/27/18 and was given oral antibiotics. No decompression was done at either of these visits. The patient today notes pain of his forearm. No fever, sweats, or chills. The patient saw Dr. Cespedes in clinic this morning and was told to go to the emergency room to get an MRI. The patient went to the emergency room, but left , and then presented to my clinic this afternoon. The patient has been out of work since 3 days ago. When I saw the patient in my clinic, he had an exam consistent with an abscess about the right ring finger. I did not think he had flexor tenosynovitis nor PIP joint or other joint infection. I told the patient to go to the emergency department. If a culture could be obtained, I asked that it be obtained followed by IV antibiotics and MRI and then I would see the patient. The patient was seen by ER staff. There was no fluid to be cultured, so IV antibiotics were not given. An MRI was obtained and the patient returned to the ER. PAST MEDICAL HISTORY: Prior history of seizures. PAST SURGICAL HISTORY: None. MEDICATIONS: None. ALLERGIES: No known drug allergies. FAMILY HISTORY: Noncontributory. 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 The patient lives with family. REVIEW OF SYSTEMS: Full review of systems was significant for no fever, sweats , or chills. Pain about the wrist and forearm as well as about the right ring finger. PHYSICAL EXAMINATION: No acute distress, nontoxic appearing, appropriate mood and affect, appropriate dress and hygiene, nonantalgic gait, well-coordinated bilateral upper and lower extremities. Temperature 97.7 degrees Fahrenheit, pulse 63, blood pressure 153/103, respirations 18, and pulse oxygenation 99% on room air. palpable or tender lymphadenopathy. The patient had some tenderness to palpation of the dorsal forearm, wrist, and hand, minimally. Right ring finger had swelling and tenderness to palpation overlying the PIP joint, proximal middle phalanx. Neurovascularly intact distally. Sensation intact to light touch. FDP and extensor tendon functions clearly are intact. FDS function less easy to prove possibly because of swelling and pain in that finger. No significant pain with passive range of motion, PIP joint 0 to 45 degrees flexion. The patient was able to extend digits fully, actively and passively, but could not quite make a composite fist given some limited full flexion of the PIP and DIP joints. IMAGING: Recent x-rays of the right ring finger showed no foreign body, soft tissue swelling. MRI of the right ring finger performed today demonstrates soft tissue swelling. There may be a loculated fluid collections volarly. No other areas of clear fluid collection besides volar to the PIP joint and in that adjacent vicinity. ASSESSMENT: Right ring finger, likely volar subcutaneous abscess with cellulitis and lymphangitic streaking. PLAN: 1. Decided to do a procedure in the emergency department to decompress this infection. 2. Procedure: I performed an incision, irrigation, debridement, and drainage of right ring finger in the emergency department. A written consent was obtained from the patient. A time-out was performed. Sterile technique, tolerated well. At first, I performed a digital nerve block. I used 15 cc of lidocaine 1%. I did digital nerve blocks, flexor tendon sheath block, and a dorsal subcutaneous block. I awaited 10 minutes. I then made an oblique incision centered about the small area of the scabbed over skin opening. This incision crossed the PIP skin flexion crease at an angle. Pus erupted. I used a culture swab to get some of that pus on it. I used spreading dissection to open the cavity. I cleaned that out with sponges. I manipulated the finger greatly to push out any additional pus. I then irrigated the wound with almost 500 cc of normal saline using a syringe. I next placed quarter-inch iodoform packing into the wound and left the tail exposed. I applied a dry sterile dressing consisting of 2x2's and Kerlix. The patient tolerated this well. No significant blood loss. 3. I discussed with the patient either admitting him for IV antibiotics or sending him home on oral antibiotics. The patient's strong preference is to return home. I did let the patient go home without a dose of IV antibiotics. 4. The patient is to take Keflex 500 mg p.o. 3 times a day and doxycycline 100 mg p.o. 2 times a day. We may adjust antibiotic coverage based on culture and sensitivities. 5. The patient will change his dressing once daily for the next three days and then will follow up with me in clinic on 11/02/18, . At that point, I will remove a part of the packing and almost the packing and I will let the patient start on soaks. Warm soapy, twice daily. 6. I told the patient that if the pain and swelling and tenderness do not improve on oral antibiotics, that the patient might need to be still admitted for IV antibiotics. If his symptoms worsen, he should come to my clinic sooner than 3 days from now or to the emergency room. [id number]/[facility] #: [id number] GUNNAR
== END 2018-10-30 19:40 | disposition home or self-care (01) ==
LOC: ED 15:45
DX: L08.9 Local infection of the skin and subcutaneous tissue, unspecified (principal); F17.210 Nicotine dependence, cigarettes, uncomplicated
CPT/HCPCS: 10060; 36415; 80053; 85025; 86140; 87070; 87076; 87077; 87205; 87640; 87641; 96372; 99283; A9579